=== PATIENT | female | born 1955 | race Caucasian/White ===

== ENCOUNTER → 2022-05-10 | Outpatient (CLI) | payer MEDICARE, OTHER, SELFPAY ==
--- NOTE | 2022-05-10 13:28 | MRI_ITS ---
EXAM: MR RIGHT LOWER EXTREMITY WITHOUT AND WITH INTRAVENOUS CONTRAST, TIBIA AND FIBULA CLINICAL INDICATION: MUSCULOSKELETAL NEOPLASM, STAGING;OSTEOCHONDROMA TECHNIQUE: Multiplanar and multisequence MR images of the right tibia and fibula without and with intravenous contrast. This report was created using Pro V[employer] report Functional Neuromodulation technology. CONTRAST: IV 15ml clariscan COMPARISON: 03/26/22 FINDINGS: BONES/JOINTS: Osteochondroma involving the medial/posterior aspect of the fibular neck/head region measuring approximately 2.4 x 1.9 cm. A cartilaginous cap is not well demonstrated on this study. No fracture. No joint effusion. No associated bony destructive findings. No concerning marrow signal alterations. MUSCLES: Muscles are normal. OTHER SOFT TISSUES: Tendons are normal. OTHER FINDINGS: Neurovascular structures are normal. MRI/Lower Ext No Joint W/WO Cont IMPRESSION: Uncomplicated osteochondroma involving the medial/posterior aspect of the fibular neck/head region measuring approximately 2.4 x 1.9 cm. Electronically Signed: Paul Vee MD at 21:34 EDT ,
[2022-05-11 07:57] LABS: CREATININE FINGERSTICK < 0.90 mg/dL (0.55-1.02); EGFR FINGERSTICK > 60 mL/min (>60)
== END | disposition home or self-care (01) ==
LOC: MRI 13:20
DX: D16.21 Benign neoplasm of long bones of right lower limb (principal)
CPT/HCPCS: 73720; A9575

== ENCOUNTER → 2022-05-11 | Outpatient (CLI) | payer MEDICARE, OTHER, SELFPAY ==
[2022-05-11 13:41] LABS: Anion Gap 6 (5-15); BUN 20 mg/dL (7-18); BUN/Creat Ratio 25.8 RATIO (10-20); Calcium,Total 9.1 mg/dL (8.5-10.1); Chloride 108 mmol/L (98-107); Creatinine, Serum 0.78 mg/dL (0.55-1.02); EST Glomerular Filtration Rate 79 mL/min (>60); Est Glom Filt Rate - Afr Amer 95 mL/min (>60); Glucose 119 mg/dL (74-106); Potassium 3.9 mmol/L (3.5-5.1); Sodium Level 139 mmol/L (136-145)
== END | disposition home or self-care (01) ==
DX: I10 Essential (primary) hypertension (principal)
CPT/HCPCS: 36415; 80048